=== PATIENT | male | born 2000 | race Caucasian/White ===

== ENCOUNTER 2022-01-25 08:52 | Emergency (ER) | payer OTHER ==
[~2022-01-25] VITALS: Ht 182.9 cm; Wt 68.1 kg
[2022-01-25 08:54] VITALS: BP 120/66
== END 2022-01-25 15:44 | disposition left against medical advice (07) ==
LOC: M ED 08:52
DX: Z53.29 Procedure and treatment not carried out because of patient's decision for other reasons (principal)